=== PATIENT | male | born 1960 | race Caucasian/White ===

== ENCOUNTER 2017-02-12 10:44 | Emergency (ER) | payer BC, OTHER ==
[2017-02-12] MEDS ORDERED: NORMAL SALINE 1000 ML 1,000 ML IV PRN ×2 (10:56→12:05)
[2017-02-12] MEDS ORDERED: ONDANSETRON HCL INJ/PF 4 MG/2 ML SDV IV ONE (10:57)
[2017-02-12] MEDS ORDERED: MORPHINE SULFATE 10 MG/ML INJ IV ONE (10:57)
--- NOTE | 2017-02-12 10:58 | ER Document Report ---
ED Medical Screen (RME) - General Chief Complaint: Flank Pain Stated Complaint: LEFT LEG NUMBNESS Time Seen by Provider: 02/12/17 10:56 Notes: Patient states about 1 hour ago he was lifting a heavy piece of equipment when he had the sudden onset of severe left lateral abdominal pain. It is making him nauseous. He is also been sweaty. He denies any problems up until he lifted the piece of equipment. He denies any chronic medical conditions. He has had one surgery which is a right sided hernia repair. TRAVEL OUTSIDE OF THE [place] IN LAST 30 DAYS: No - Related Data Allergies/Adverse Reactions: No Known Allergies Allergy (Verified 02/12/17 10:57) Past Medical History - Social History Frequency of alcohol use: None Drug Abuse: None Renal/ Medical History: Denies: Hx Peritoneal Dialysis Physical Exam - Vital signs Vitals: Temp Pulse Resp BP Pulse Ox 97.7 F 77 22 H 150/100 H 97 02/12/17 10:51 02/12/17 10:51 02/12/17 10:51 02/12/17 10:51 02/12/17 10:51 Course - Vital Signs Vital signs: Temp Pulse Resp BP Pulse Ox 97.7 F 77 22 H 150/100 H 97 02/12/17 10:51 02/12/17 10:51 02/12/17 10:51 02/12/17 10:51 02/12/17 10:51
[2017-02-12 11:15] LABS: ABSOLUTE LYMPHOCYTES (AUTO) 1.6 10^3/uL (0.5-4.7); ABSOLUTE MONOCYTES (AUTO) 0.5 10^3/uL (0.1-1.4); ABSOLUTE NEUT (AUTO) 6.7 10^3/uL (1.7-8.2); BASOPHILS % (AUTO) 0.3 % (0-2); EOSINOPHILS % (AUTO) 0.2 % (0-6); HEMOGLOBIN 16.5 g/dL (13.5-17.0); HGB HCT DIFFERENCE 0.5; LYMPHOCYTES % (AUTO) 18.2 % (13-45); MEAN CORPUSCULAR HEMOGLOBIN 30.3 pg (27.0-33.4); MEAN CORPUSCULAR HGB CONC 33.8 g/dL (32.0-36.0); MEAN CORPUSCULAR VOLUME 90 fl (80-97); MONOCYTES % (AUTO) 6.1 % (3-13); RED BLOOD COUNT 5.45 10^6/uL (4.35-5.55); RED CELL DISTRIBUTION WIDTH 13.2 % (11.5-14.0); SEGMENTED NEUTROPHILS % (AUTO) 75.2 % (42-78)
[2017-02-12 11:29] LABS: ALANINE AMINOTRANSFERASE 42 U/L (21-72); ALBUMIN 4.9 g/dL (3.5-5.0); ALKALINE PHOSPHATASE 85 U/L (38-126); ANION GAP 17 (5-19); ASPARTATE AMINO TRANSFERASE 27 U/L (17-59); BILIRUBIN,DIRECT 0.3 mg/dL (0.0-0.4); BILIRUBIN,TOTAL 1.1 mg/dL (0.2-1.3); BLOOD UREA NITROGEN 21 mg/dL (7-20); CALCIUM 10.7 mg/dL (8.4-10.2); CARBON DIOXIDE 19 mmol/L (22-30); CHLORIDE 103 mmol/L (98-107); CREATININE RESULT 1.08 mg/dL (0.52-1.25); GLUCOSE 172 mg/dL (75-110); LIPASE 77.7 U/L (23-300); POTASSIUM 4.2 mmol/L (3.6-5.0); SODIUM 138.6 mmol/L (137-145); TOTAL PROTEIN 8.1 g/dL (6.3-8.2)
[2017-02-12] MEDS ORDERED: DIPHENHYDRAMINE HCL 50 MG/ML VIAL IV ONE (11:40)
[2017-02-12] MEDS ORDERED: METOCLOPRAMIDE HCL INJ/PF 10 MG/2 ML SDV IV ONE (11:40)
--- NOTE | 2017-02-12 12:05 | ER Document Report ---
ED General - General Chief Complaint: Flank Pain Stated Complaint: LEFT LEG NUMBNESS Time Seen by Provider: 02/12/17 10:56 Mode of Arrival: Ambulatory Information source: Patient Notes: This is a 57-year-old man presenting to the emergency room with acute left flank pain radiating down into the groin. 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 He says it was radiating into his groin and he was getting left leg pain. The pain was associated with nausea and vomiting. The patient is vomiting in the ER when I go into the room. TRAVEL OUTSIDE OF THE [place] IN LAST 30 DAYS: No - HPI Onset: This morning Onset/Duration: Sudden Quality of pain: Dull Severity: Severe Pain Level: 5 Associated symptoms: Nausea, Vomiting. denies: Chills, Fever, Shortness of breath Exacerbated by: Denies Relieved by: Denies Similar symptoms previously: No Recently seen / treated by doctor: No - Related Data Allergies/Adverse Reactions: No Known Allergies Allergy (Verified 02/12/17 10:57) Past Medical History - General Information source: Patient - Social History Smoking Status: Never Smoker Cigarette use (# per day): No Chew tobacco use (# tins/day): No Frequency of alcohol use: None Drug Abuse: None Lives with: Spouse/Significant other Family History: Reviewed & Not Pertinent Patient has suicidal ideation: No Patient has homicidal ideation: No - Past Medical History Cardiac Medical History: Reports: Hx Hypercholesterolemia Pulmonary Medical History: Reports: None Neurological Medical History: Reports: None Endocrine Medical History: Reports: None Renal/ Medical History: Reports: Hx Kidney Stones Malignancy Medical History: Reports None GI Medical History: Reports: None Musculoskeltal Medical History: Reports None Psychiatric Medical History: Reports: None Traumatic Medical History: Reports: None Infectious Medical History: Reports: None Past Surgical History: Reports: Hx Herniorrhaphy Review of Systems - Review of Systems Constitutional: No symptoms reported EENT: No symptoms reported Cardiovascular: No symptoms reported Respiratory: No symptoms reported Gastrointestinal: See HPI Genitourinary: No symptoms reported Male Genitourinary: No symptoms reported Musculoskeletal: No symptoms reported Skin: No symptoms reported Hematologic/Lymphatic: No symptoms reported Neurological/Psychological: No symptoms reported Physical Exam - Vital signs Vitals: Temp Pulse Resp BP Pulse Ox 97.7 F 77 24 H 150/100 H 97 02/12/17 10:50 02/12/17 10:50 02/12/17 10:50 02/12/17 10:50 02/12/17 10:50 Notes: Physical exam: GENERAL: 57-year-old man, alert and oriented 3, moderate distress HEAD: Atraumatic, normocephalic. EYES: Pupils equal round and reactive to light, extraocular movements intact, sclera anicteric, conjunctiva are normal. ENT: TMs normal, nares patent, oropharynx clear without exudates. Moist mucous membranes. NECK: Normal range of motion, supple without obvious mass or JVD. LUNGS: Breath sounds clear to auscultation bilaterally and equal. No wheezes rales or rhonchi. HEART: Regular rate and rhythm without murmurs, rubs or gallops. ABDOMEN: Soft, normoactive bowel sounds. No tenderness to palpation. No guarding, no rebound. No pulsatile masses/no palpable masses. Patient does have left CVA tenderness over the area of the kidney. Penis: Testes 2, no inguinal hernias palpable EXTREMITIES: Normal range of motion, no pitting or edema. No clubbing or cyanosis. NEUROLOGICAL: Cranial nerves II through XII grossly intact. Normal speech, moving all extremities. PSYCH: Normal mood, normal affect. SKIN: Warm, Dry, normal turgor, no rashes or lesions noted. Bedside ultrasound: No obvious aortic enlargement. Patient does appear to have some left hydronephrosis when compared to the right. Course - Re-evaluation Re-evalutation: 02/12/17 15:04 Patient was given IV fluids, IV nausea medicine, IV pain medicine. He is feeling better. I discussed the results of the CAT scan with him and his . I discussed the plan with them. Gave them instructions on what to return to the ER for. - Vital Signs Vital signs: Temp Pulse Resp BP Pulse Ox 97.7 F 64 16 119/68 97 02/12/17 14:45 02/12/17 14:45 02/12/17 14:45 02/12/17 14:45 02/12/17 14:45 - Laboratory Result Diagrams: 02/12/17 11:06 02/12/17 11:06 Laboratory results interpreted by me: 02/12/17 02/12/17 11:06 11:35 Carbon Dioxide 19 L BUN 21 H Glucose 172 H Calcium 10.7 H Urine Protein 30 H Urine Ketones 20 H Urine Blood MODERATE H Ur Leukocyte Esterase TRACE H Urine Ascorbic Acid 40 H - Diagnostic Test Radiology reviewed: Image reviewed, Reports reviewed - CT of the abdomen reveals left hydronephrosis and hydroureter with a 2 mm stone at the ureter vesicular junction. Discharge - Discharge Clinical Impression: Left ureteral calculus Condition: Stable Disposition: HOME, SELF-CARE Instructions: Kidney Stone ([facility]) Additional Instructions: Recommendations: Take ibuprofen up to 800 mg every 6 hours for the next 2 days. Take the Percocet as prescribed. You can intersperse the Percocet and the ibuprofen to minimize dosages of both. Drink plenty of fluids. Return to the ER for worsening pain, fever or any concerns or getting worse. If you need to follow-up with urologist: Replaced by [facility] [place] [facility] [address] [place], [place] [phone] [facility] Office [address] [place] [address]. [place], [place] [phone] Prescriptions: Oxycodone HCl/Acetaminophen [Percocet 5-325 mg Tablet] 1 - 2 tab PO ASDIR PRN # 25 tablet PRN Reason: Tamsulosin HCl [Flomax 0.4 mg Cap.sr] 0.4 mg PO DAILY #7 cap.sr.24h
[2017-02-12 12:09] LABS: APPEARANCE,URINE SLIGHTLY-CLOUDY; BILIRUBIN,URINE NEGATIVE (NEGATIVE); GLUCOSE, URINE NEGATIVE (NEGATIVE); KETONES,URINE 20 mg/dL (NEGATIVE); LEUKOCYTE ESTERASE,URINE TRACE (NEGATIVE); NITRITE,URINE NEGATIVE (NEGATIVE); PROTEIN,URINE 30 mg/dL (NEGATIVE); URINE SPECIFIC GRAVITY 1.033; UROBILINOGEN,URINE NEGATIVE mg/dL (<2.0)
--- NOTE | 2017-02-12 12:28 | RADIOLOGY REPORT (SQ) ---
EXAM DESCRIPTION: CT LTD RENAL STONE PROTOCOL ON COMPLETED DATE/TIME: 02/12/2017 12:08 pm REASON FOR STUDY: lefdt flank pain COMPARISON: None. TECHNIQUE: CT scan of the abdomen and pelvis performed without intravenous or oral contrast. Images reviewed with lung, soft tissue, and bone windows. Reconstructed coronal and sagittal MPR images revi ewed. All images stored on PACS. All CT scanners at this facility use dose modulation, iterative reconstruction, and/or weight based d osing when appropriate to reduce radiation dose to as low as reasonably achievable (ALARA). [facility]: Dose Right [facility]: CareDose [facility]: Dose Right [facility]: Teradose 4D [facility]: Smart Respicardia RADIATION DOSE: Up-to-date CT equipment and radiation dose reduction techniques were employed. CTDIv ol: 10.6 mGy. DLP: 577 mGy-cm.mGy. LIMITATIONS: None. FINDINGS: LOWER CHEST: No significant findings. No nodules or infiltrates. NON-CONTRASTED LIVER, SPLEEN, ADRENALS: Suspect small liver cysts. No overtly suspicious lesion or c ontour abnormality. Spleen unremarkable. No adrenal mass. PANCREAS: No masses. No peripancreatic inflammatory changes. GALLBLADDER: No calcified stones or wall thickening evident. RIGHT KIDNEY AND URETER: No solid masses. No significant calcification. No hydronephrosis or hydroure ter. LEFT KIDNEY AND URETER: Mild to moderate left hydronephrosis with ureteral dilatation diffusely. Thi s is due to a tiny stone at the UVJ. This stone measures 2 mm. AORTA AND RETROPERITONEUM: No aneurysm. No retroperitoneal masses or adenopathy. BOWEL AND PERITONEAL CAVITY: No obvious masses or inflammatory changes. No free fluid. APPENDIX: Normal. PELVIS, BLADDER, AND ABDOMINAL WALL:Tiny bladder stone as above. No pelvic mass or fluid. No abdomi nal wall mass or bowel containing hernia. BONES: No significant findings. OTHER: No other significant finding. IMPRESSION: 1. Left obstructive uropathy. Mild to moderate hydronephrosis is present due to a tiny calcification which lies within the left aspect of the bladder in the region of the vesicoureteral ju nction. TECHNICAL DOCUMENTATION: JOB ID: [id number] Quality ID # [id number]: Final reports with documentation of one or more dose reduction techniques (e.g., Au tomated exposure control, adjustment of the mA and/or kV according to patient size, use of iterative reconstruction technique) 2010 [facility] [employer]- All Rights Reserved
[2017-02-12 14:55] VITALS: BP 119/68
[2017-02-12] MEDS ORDERED: KETOROLAC TROMETHAMINE 60 MG/2 ML SDV IM ONE (15:08)
== END 2017-02-12 15:15 | disposition home or self-care (01) ==
LOC: ER 10:44
DX: N20.1 Calculus of ureter (principal); R10.9 Unspecified abdominal pain; R20.0 Anesthesia of skin; R11.2 Nausea with vomiting, unspecified
CPT/HCPCS: 99284; 96372; 96361; 96374; 96375; 36415; 83690; 85025; 80053; 81001; 76380; J1200; J1885; J2765; J2270; J2405; J7030